=== PATIENT | female | born 1985 | race African-American/Black ===

== ENCOUNTER 2019-06-18 17:46 | Emergency (ER) | payer BC ==
[~2019-06-18] VITALS: Ht 170.2 cm; Wt 81.6 kg
[2019-06-18] MEDS ORDERED: HYDROCODONE/APAP 5-325MG TABLET ONE (18:59)
[2019-06-18] MEDS ORDERED: HYDROCODONE/APAP 5-325MG TABLET PO ONE (19:00)
--- NOTE | 2019-06-18 19:11 | NUR ---
Patient discharged to home in stable conditon. Written and verbal after care instructions given. Patient verbalizes understanding of instructions.
== END 2019-06-18 19:14 | disposition home or self-care (01) ==
LOC: ER 17:46
DX: M25.572 Pain in left ankle and joints of left foot (principal); Z88.8 Allergy status to other drugs, medicaments and biological substances; X50.1XXA Overexertion from prolonged static or awkward postures, initial encounter; Y93.89 Activity, other specified; Y92.89 Other specified places as the place of occurrence of the external cause; Y99.8 Other external cause status
CPT/HCPCS: 73610; A4663